=== PATIENT | female | born 1990 ===

== ENCOUNTER 2019-03-10 11:22 | Inpatient (IN) | payer OTHER ==
[~2019-03-10] VITALS: Ht 154.9 cm; Wt 4.1 kg
[2019-03-24] MEDS ORDERED: ASPIR 8181 MG PO (12:49)
[2019-03-24] MEDS ORDERED: PRENATABS FA T1 EACH PO (13:05)
== END 2019-04-01 13:23 | disposition home or self-care (01) | DRG 785 ==
LOC: LDR 03-17 12:45 → OB/GYN 03-29 07:12 → O/R 03-29 07:12 → LDR 03-29 12:45 → OB/GYN 03-29 15:52
PROVIDERS: ADMIT Specialist
PROC: 0UL70ZZ Occlusion of Bilateral Fallopian Tubes, Open Approach (ICD-10-PCS; 2019-03-29)
PROC: 4A1HXCZ Monitoring of Products of Conception, Cardiac Rate, External Approach (ICD-10-PCS; 2019-03-29)
PROC: 10D00Z1 Extraction of Products of Conception, Low, Open Approach (ICD-10-PCS; principal; 2019-03-29 07:00)
DX: O82 Encounter for cesarean delivery without indication (principal); Z3A.39 39 weeks gestation of pregnancy; Z37.0 Single live birth; Z30.2 Encounter for sterilization